=== PATIENT | female | born 1995 | race Caucasian/White ===

== ENCOUNTER 2022-04-22 12:43 | Emergency (ER) | payer MEDICAID ==
[~2022-04-22] VITALS: Ht 152.4 cm; Wt 62.6 kg
[2022-04-22 13:21] VITALS: BP 114/61
--- NOTE | 2022-04-22 13:21 | NUR ---
Chely pedro in [facility] - 04/22/22 at 1435 by [email or web address] PT W/C ASSISTED TO BED 3.
--- NOTE | 2022-04-22 13:28 | NUR ---
PT AMB TO BED 2.
[2022-04-22] MEDS ORDERED: ACETAMINOPHEN 325 MG TAB PO ONE (13:50)
--- NOTE | 2022-04-22 13:50 | NUR ---
26 Y.O. F C/O LOWER ABDOMINAL PAIN X TODAY. LMP 03/13/22. 6 WEEKS . PT COMPLAINS OF PUBIS PAIN 03/15 AT THIS TIME. DENIES PAIN WHEN URINATING, N/V/D, SOB AND CHEST PAIN. A&OX4, SKIN INATCT, VITALS WNL AND STEADY GAIT. NKA PMH: BLK AMPUTEE, GASTRIC BYPASS
[2022-04-22 14:27] LABS: BASOPHILS % (AUTO) 0.2 % (0.0-2.0); EOSINOPHILS % (AUTO) 0.2 % (0.0-4.0); HEMATOCRIT 35.1 % (36-48); HEMOGLOBIN 11.4 g/dL (12.0-16.0); LYMPHOCYTES # (AUTO) 1.5 K/uL (2.5-16.5); LYMPHOCYTES % (AUTO) 26.1 % (20.5-51.1); MEAN CORPUSCULAR HEMOGLOBIN 25 pg (27-31); MEAN CORPUSCULAR HGB CONC 32 g/dL (33-37); MEAN CORPUSCULAR VOLUME 75.6 fL (80-94); MONOCYTES # (AUTO) 0.5 K/uL (0.8-1.0); MONOCYTES % (AUTO) 8.5 % (1.7-9.3); NEUTROPHILS # (AUTO) 3.7 K/uL (1.8-7.7); PLATELET COUNT (AUTO) 259 K/uL (140-450); RED BLOOD CELL COUNT(AUTO) 4.64 MIL/uL (4.20-5.40); RED CELL DISTRIBUTION WIDTH 16.3 % (11.6-13.7); WHITE BLOOD COUNT (AUTO) 5.8 K/uL (4.8-10.8)
[2022-04-22 14:34] LABS: APPEARANCE,URINE CLEAR (CLEAR); BILIRUBIN,URINE NEGATIVE (NEGATIVE); BLOOD, URINE NEGATIVE (NEGATIVE); COLOR,URINE YELLOW (YELLOW); LEUKOCYTE ESTERASE ,URINE TRACE (NEGATIVE); NITRITE, URINE NEGATIVE (NEGATIVE); UGLUCOSE NEGATIVE (NEGATIVE)
[2022-04-22 15:09] LABS: OTHER CASTS, URINE None Seen /LPF (None Seen); RBC,URINE 0-5 /HPF (0-5); WBC,URINE 0-5 /HPF (0-5)
[2022-04-22] MEDS ORDERED: ACET-9520 PO (16:05)
[2022-04-22 16:16] VITALS: BP 113/65
== END 2022-04-22 16:16 | disposition home or self-care (01) ==
LOC: MED 12:43
DX: O26.891 Other specified pregnancy related conditions, first trimester (principal); R10.2 Pelvic and perineal pain; Z3A.01 Less than 8 weeks gestation of pregnancy; Z79.899 Other long term (current) drug therapy
CPT/HCPCS: 36415; 76817; 81001; 81025; 84702; 85025; 86900; 86901; 99284; Q0092